=== PATIENT | male | born 1965 | race Caucasian/White ===

== ENCOUNTER 2018-08-28 15:23 | Emergency (ER) | payer OTHER ==
[~2018-08-28] VITALS: Ht 182.9 cm; Wt 70.3 kg
[~2018-08-28 15:23] MED LIST: ALBU90I INH; ALBU90OI INH; AZIT250 PO; AZIT500 PO; CIPR500 PO; CODE30 PO; CYCL10 PO; ERYT.5TO LEFTEYE; HYDACE10B PO; HYDACE5 PO; HYDACE7.5 PO; KETO10 PO; LORA2 PO; NAPR500 PO; Naprosyn500 MG PO; Norco 5-325 Ta1 EACH PO; OXYACE5T PO; PENVK500 PO; PRED10 PO; PRED20 PO; RXCYCL10 PO; RXHYDACE PO; SUCR1SU PO; SULTRIDS PO; TAMS.4ER PO; Veetids 500500 MG PO; [UNRECOGNIZED DRUG - REMARK]
== END 2018-08-28 17:15 | disposition home or self-care (01) ==
LOC: ER 15:23
DX: M77.9 Enthesopathy, unspecified (principal); J43.9 Emphysema, unspecified; F17.210 Nicotine dependence, cigarettes, uncomplicated
CPT/HCPCS: 96372; 99283-25; J1885

== ENCOUNTER → 2022-02-03 | Outpatient (CLI) | payer OTHER ==
[2022-02-03 13:41] LABS: Stool Occult Bld Immuno 1 Negative (NEGATIVE)
== END | disposition home or self-care (01) ==
LOC: LAB 06:00 → LAB SHORT 06:00
PROVIDERS: Internal Medicine Endocrinology, Diabetes & Metabolism
DX: K92.1 Melena (principal)
CPT/HCPCS: 82274

== ENCOUNTER 2023-03-17 19:01 | Emergency (ER) | payer OTHER ==
[~2023-03-17] VITALS: Ht 182.9 cm; Wt 63.5 kg
[2023-03-17 19:31] VITALS: BP 133/85
[2023-03-17] MEDS ORDERED: Cetirizine HCl10 MG PO (19:59)
[2023-03-17] MEDS ORDERED: FLUT.05NI (19:59)
== END 2023-03-17 20:53 | disposition home or self-care (01) ==
LOC: ER 19:01
DX: S46.911A Strain of unspecified muscle, fascia and tendon at shoulder and upper arm level, right arm, initial encounter (principal); X58.XXXA Exposure to other specified factors, initial encounter; Y99.0 Civilian activity done for income or pay; Z79.899 Other long term (current) drug therapy; J43.9 Emphysema, unspecified; F17.210 Nicotine dependence, cigarettes, uncomplicated
CPT/HCPCS: 73030; 73080; 96372; 99283-25; J1885

== ENCOUNTER 2023-06-21 19:33 | Inpatient (IN) | payer OTHER ==
[~2023-06-21] VITALS: Ht 182.9 cm; Wt 65.8 kg
[~2023-06-21 19:33] MED LIST changes: +Cetirizine HCl10 MG PO; +FLUT.05NI
[2023-06-22 02:49] VITALS: BP 150/83
--- NOTE | 2023-06-22 05:25 | NUR ---
[facility] DOWNTIME PLEASE SEE PAPERCHART FOR ADMISSION ASSESSMENT, AND NURSE'S NOTES.
[2023-06-22 07:09] LABS: BASOPHILS ABSOLUTE AUTO 0.06 K/mm3 (0.00-0.23); BASOPHILS PERCENT AUTO 1 % (0-2); EOSINOPHILS PERCENT AUTO 3 % (0-6); Hematocrit 36.6 % (37.0-53.0); Hemoglobin 12.6 g/dL (13.5-17.5); IMMATURE GRAN ABSOLUTE AUTO 0.03 K/mm3 (0.00-0.10); IMMATURE GRAN PERCENT AUTO 0 % (0-1); LYMPHOCYTES ABSOLUTE AUTO 2.29 K/mm3 (0.84-5.20); LYMPHOCYTES PERCENT AUTO 20 % (21-46); MONOCYTES ABSOLUTE AUTO 1.15 K/mm3 (0.16-1.47); MONOCYTES PERCENT AUTO 10 % (4-13); Mean Corpuscular HGB 30.3 pg (26.0-34.0); Mean Corpuscular HGB Conc 34.4 g/dL (31.5-36.5); Mean Corpuscular Volume 88 fL (80-100); NEUTROPHILS PERCENT AUTO 67 % (41-73); Platelet Count 253 K/mm3 (150-400); RDW Coefficient Variation 14.3 % (11.7-14.2); RDW Standard Deviation 46.4 fL (35.1-46.3); Red Blood Cell Count 4.16 M/mm3 (4.30-5.90); White Blood Cell Count 11.43 K/mm3 (4.00-11.30)
[2023-06-22 07:28] VITALS: BP 128/74
[2023-06-22 07:33] LABS: Albumin, Blood 3.2 g/dL (3.4-5.0); Bilirubin, Total 0.5 mg/dL (0.1-1.0); Bun/Creatinine Ratio 8.6 (12.0-20.0); Creatinine, Blood 1.05 mg/dL (0.60-1.20); Globulin, Blood 3.2 g/dL (2.2-4.0); Potassium, Blood 3.6 mmol/L (3.5-5.5); Total Protein, Blood 6.4 g/dL (6.4-8.2)
--- NOTE | 2023-06-22 12:18 | NUR ---
DR. MEDRANO CALLED TO CHECK ON PT, STATES SHE WILL BE IN LATER THIS EVENING TO SEE PT, PT NOTIFIED.
[2023-06-22 14:40] VITALS: BP 139/84
--- NOTE | 2023-06-22 16:26 | NUR ---
PT HAS SLEPT MOST OF THE DAY, INDEPENDENT TO THE BATHROOM, DENIES ANY NEED FOR PAIN MEDS, AWAITING ENT CONSULT THIS EVENING, REPORT GIVEN TO EDUARDO BALLESTEROS, NO ACUTE CHANGES THIS SHIFT.
--- NOTE | 2023-06-22 16:30 | NUR ---
ASSUMING CARE OF PT FROM ANNA MARIE Guzman RN. PT SLEEPING. RESPIRATIONS E/U.
--- NOTE | 2023-06-22 17:50 | NUR ---
DR ORTEGA IN TO SEE PT. MAY EAT FROM HER STANDPOINT. SPOKE TO DR RAMIRES AND OBTAINED ORDERS FOR REGULAR DIET. ORDERED DINNER TRAY NOW AND PROVIDED ICE WATER. PT REPORTING HERRERA, DISCUSSED WITH DR RAMIRES, ORDERS PENDING FOR TYLENOL.
[2023-06-22 19:27] VITALS: BP 148/99
--- NOTE | 2023-06-23 04:25 | NUR ---
SHIFT SUMMARY PT ABLE TO REST T/O NIGHT. UP TO THE BATHROOM INDEPENDENTLY. DENIES ANY PAIN DURING THE SHIFT. TOLERTING PO INTAKE. ABCESS TO L JAW/CHEEK DRAINING SEROSANGIENOUS FLUID, WITH SOME PURULENT FLUID. PT RECEIVING IV ABX PER EMAR. NO OTHER CONCERNS AT THIS TIME. CALL LIGHT WITHIN REACH
[2023-06-23 04:42] VITALS: BP 145/92
[2023-06-23 05:13] LABS: BASOPHILS ABSOLUTE AUTO 0.09 K/mm3 (0.00-0.23); BASOPHILS PERCENT AUTO 1 % (0-2); EOSINOPHILS ABSOLUTE AUTO 0.26 K/mm3 (0.00-0.68); EOSINOPHILS PERCENT AUTO 3 % (0-6); Hematocrit 34.8 % (37.0-53.0); IMMATURE GRAN ABSOLUTE AUTO 0.03 K/mm3 (0.00-0.10); IMMATURE GRAN PERCENT AUTO 0 % (0-1); LYMPHOCYTES ABSOLUTE AUTO 2.11 K/mm3 (0.84-5.20); LYMPHOCYTES PERCENT AUTO 21 % (21-46); MONOCYTES ABSOLUTE AUTO 1.01 K/mm3 (0.16-1.47); MONOCYTES PERCENT AUTO 10 % (4-13); Mean Corpuscular HGB 30.6 pg (26.0-34.0); Mean Corpuscular HGB Conc 34.5 g/dL (31.5-36.5); Mean Corpuscular Volume 89 fL (80-100); Mean Platelet Volume 9.7 fL (9.1-12.4); NEUTROPHILS ABSOLUTE AUTO 6.74 K/mm3 (1.96-9.15); NEUTROPHILS PERCENT AUTO 66 % (41-73); Platelet Count 264 K/mm3 (150-400); RDW Coefficient Variation 14.1 % (11.7-14.2); RDW Standard Deviation 45.6 fL (35.1-46.3); Red Blood Cell Count 3.92 M/mm3 (4.30-5.90); White Blood Cell Count 10.24 K/mm3 (4.00-11.30)
[2023-06-23 05:46] LABS: Calcium, Blood 8.5 mg/dL (8.5-10.1); Creatinine, Blood 1.09 mg/dL (0.60-1.20); Potassium, Blood 3.4 mmol/L (3.5-5.5)
[2023-06-23 07:39] VITALS: BP 127/85
[2023-06-23] MEDS ORDERED: AMOCLA875 PO (10:30)
[2023-06-23 11:37] VITALS: BP 139/82
--- NOTE | 2023-06-23 11:49 | NUR ---
DISCHARGED REVIEWED DC INSTRUCTIONS W/PT; VERBALIZED UNDERSTANDING. DC'D IV, CATHETER INTACT. VSS. PROVIDED DRESSING CHANGES. PRESCRIPTION FAXED TO [facility] PER PT REQUEST. PT LEFT UNIT BY AMBULATION, DECLINED WC, WITH POSSESSIONS, DRESSING CHANGES, AND DC PAPERWORK IN HAND.
== END 2023-06-23 11:48 | disposition home or self-care (01) | DRG 158 ==
LOC: ER 19:33 → SURS 06-22 02:40
PROVIDERS: Family Medicine; Student in an Organized Health Care Education/Training Program; ADMIT Internal Medicine
DX: K12.2 Cellulitis and abscess of mouth (principal); F17.213 Nicotine dependence, cigarettes, with withdrawal; L03.211 Cellulitis of face; J43.9 Emphysema, unspecified; Z85.21 Personal history of malignant neoplasm of larynx; Z92.21 Personal history of antineoplastic chemotherapy; Z98.890 Other specified postprocedural states; Z87.442 Personal history of urinary calculi
CPT/HCPCS: 36415; 70491; 80048; 80053; 85025; 99284-25; A9270; J0696; J1100; J1650; J7030; J7050; Q9967

== ENCOUNTER → 2023-09-27 | Outpatient (CLI) | payer OTHER ==
[~2023-09-27] MED LIST changes: +AMOCLA875 PO
== END | disposition home or self-care (01) ==
LOC: LAB SHORT 17:27 → LAB 17:27
DX: L02.01 Cutaneous abscess of face (principal)
CPT/HCPCS: 87070; 87077; 87147; 87186; 87205

== ENCOUNTER 2024-02-07 16:01 | Emergency (ER) | payer OTHER ==
[~2024-02-07] VITALS: Ht 182.9 cm; Wt 74.8 kg
[2024-02-07 16:05] VITALS: BP 133/89
== END 2024-02-07 20:18 | disposition home or self-care (01) ==
LOC: ER 16:01
DX: S50.11XA Contusion of right forearm, initial encounter (principal); M25.511 Pain in right shoulder; W11.XXXA Fall on and from ladder, initial encounter; J44.9 Chronic obstructive pulmonary disease, unspecified; F17.210 Nicotine dependence, cigarettes, uncomplicated
CPT/HCPCS: 73090; 99284-25

== ENCOUNTER 2024-12-11 16:48 | Emergency (ER) | payer OTHER ==
[~2024-12-11] VITALS: Ht 182.9 cm; Wt 63.5 kg
[2024-12-11 16:57] VITALS: BP 120/79
[2024-12-11 17:19] LABS: BASOPHILS ABSOLUTE AUTO 0.06 K/mm3 (0.00-0.23); BASOPHILS PERCENT AUTO 1 % (0-2); EOSINOPHILS ABSOLUTE AUTO 0.13 K/mm3 (0.00-0.68); EOSINOPHILS PERCENT AUTO 2 % (0-6); Hematocrit 34.8 % (37.0-53.0); Hemoglobin 11.9 g/dL (13.5-17.5); IMMATURE GRAN ABSOLUTE AUTO 0.02 K/mm3 (0.00-0.10); IMMATURE GRAN PERCENT AUTO 0 % (0-1); LYMPHOCYTES ABSOLUTE AUTO 2.39 K/mm3 (0.84-5.20); LYMPHOCYTES PERCENT AUTO 29 % (21-46); MONOCYTES ABSOLUTE AUTO 0.67 K/mm3 (0.16-1.47); MONOCYTES PERCENT AUTO 8 % (4-13); Mean Corpuscular HGB 31.2 pg (26.0-34.0); Mean Corpuscular HGB Conc 34.2 g/dL (31.5-36.5); Mean Corpuscular Volume 91 fL (80-100); Mean Platelet Volume 9.6 fL (9.1-12.4); NEUTROPHILS ABSOLUTE AUTO 5.11 K/mm3 (1.96-9.15); NEUTROPHILS PERCENT AUTO 61 % (41-73); Platelet Count 272 K/mm3 (150-400); RDW Standard Deviation 47.2 fL (35.1-46.3); Red Blood Cell Count 3.81 M/mm3 (4.30-5.90); White Blood Cell Count 8.38 K/mm3 (4.00-11.30)
[2024-12-11 17:45] LABS: Albumin, Blood 3.5 g/dL (3.4-5.0); Albumin/Globulin Ratio 1.3 (0.8-1.8); Bilirubin, Total 0.6 mg/dL (0.1-1.0); Bun/Creatinine Ratio 10.2 (12.0-20.0); Calcium, Blood 8.9 mg/dL (8.5-10.1); Creatinine, Blood 1.27 mg/dL (0.60-1.20); Globulin, Blood 2.7 g/dL (2.2-4.0); Potassium, Blood 3.6 mmol/L (3.5-5.5); Total Protein, Blood 6.2 g/dL (6.4-8.2)
[2024-12-11 18:23] LABS: Source, Urine Clean Catch
[2024-12-11 18:31] LABS: Appearance, Urine Hazy (Clear); Bilirubin, Urine Neg (Neg); Blood, Urine 5+ (Neg); Color, Urine Amber (P-Yellow); Glucose Qualitative, Urine Neg (Neg); Ketones, Urine Neg (Neg); Leukocyte Esterase, Urine 3+ (Neg); Nitrite, Urine Neg (Neg); Protein, Urine 3+ (Neg); Specific Gravity, Urine 1.015 (1.003-1.022); Urobilinogen, Urine NORM (Normal)
[2024-12-11 18:57] LABS: Bacteria Rare /hpf; Mucus Light (0-Heavy); Red Blood Cells, Urine 50-100 /hpf (0-2); Squamous Epithelial Cells Rare /hpf (Few); White Blood Cells, Urine 25-50 /hpf (0-5)
== END 2024-12-11 21:00 | disposition home or self-care (01) ==
LOC: ER 16:48
PROVIDERS: Student in an Organized Health Care Education/Training Program
DX: N20.0 Calculus of kidney (principal); J43.9 Emphysema, unspecified; F17.210 Nicotine dependence, cigarettes, uncomplicated
CPT/HCPCS: 74177; 80053; 81001; 85025; 87086; 99284-25; Q9967